=== PATIENT | female | born 1945 | race Caucasian/White ===

== ENCOUNTER 2019-12-05 07:09 | Outpatient (CLI) | payer MEDICARE, SELFPAY ==
[2019-12-05 07:49] LABS: Basophils Absolute Auto 0.03 K/mm3 (0.00-0.10); Basophils Percent Auto 0.7 % (0.0-1.0); Eosinophils Absolute Auto 0.14 K/mm3 (0.02-0.50); Eosinophils Percent Auto 3.1 % (1.0-6.0); Hematocrit 41.9 % (35.0-42.0); Hemoglobin 13.5 g/dL (11.7-13.8); Immature Granulocyte Absolute 0.07 K/mm3 (0.00-0.00); Immature Granulocyte Percent A 1.6 % (0.0-0.0); Lymphocytes Percent Auto 33.6 % (18.0-42.0); Mean Corpuscular HGB Conc 32.2 g/dL (32.0-36.0); Mean Corpuscular Hemoglobin 31.4 pg (27.0-31.0); Mean Corpuscular Volume 97.4 fL (78.0-102.0); Mean Platelet Volume 9.3 fl (9.2-11.8); Monocytes Absolute Auto 0.53 K/mm3 (0.10-0.90); Monocytes Percent Auto 11.9 % (2.0-11.0); Neutrophils Absolute Auto 2.2 K/mm3 (1.7-7.2); Neutrophils Percent Auto 49.1 % (50.0-70.0); Platelet Count Result 201 K/mm3 (150-420); Red Cell Distribution Width 13.1 % (11.6-14.4); White Blood Count 4.5 K/mm3 (4.8-10.8)
[2019-12-05 08:16] LABS: Hemoglobin A1C 6.7 % (<5.7)
[2019-12-05 08:24] LABS: Anion Gap 11.8 mmol/L (7-16); Blood Urea Nitrogen 13 mg/dL (7-18); Calcium 9.1 mg/dL (8.5-10.1); Carbon Dioxide 32 mmol/L (21-32); Chloride 101 mmol/L (98-108); Cholesterol 197 mg/dL (0-200); Estimated Glomerular Filt Rate > 60; Glucose 131 mg/dL (70-99); HDL Direct 52 mg/dL (40-60); LDL Cholesterol Calculated 109 mg/dL (<130); Osmolality Calculated 292 mOsm/kg (285-295); Potassium 4.8 mmol/L (3.5-5.1); Sodium 140 mmol/L (136-145); Triglycerides 179 mg/dL (0-150)
== END 2019-12-05 07:10 | disposition home or self-care (01) ==
PROVIDERS: PCP Family Medicine; Visit Provider Family Medicine
DX: I50.9 Heart failure, unspecified (principal); E66.3 Overweight; E11.9 Type 2 diabetes mellitus without complications
CPT/HCPCS: 36415; 80048; 80061; 83036; 85025

== ENCOUNTER 2019-12-08 10:42 | Outpatient (CLI) | payer MEDICARE, SELFPAY ==
--- NOTE | 2019-12-12 12:46 | P.PCNPFT_ITS ---
PFT Interpretation PFT Interpretation: DOS: 12/08/2019 REQUESTING: Alonso Paige DO REASON FOR TESTING: Heart failure PULMONARY FUNCTION TESTS Results are reliable and reproducible, Spirometry: FEV1 is 58% predicted, moderately decreased, 1.1 L. FVC is 72%, predicted mildly decreased. FEV1% is decreased consistent with airflow obstruction. LPY60-94% is decreased at 30% predicted and increases 60% after bronchodilator. Lung volumes: Total lung capacity is 86% predicted, normal. Residual volume 111%. RV/TLC is increased 129% consistent with air trapping. Airway resistance is normal. Diffusion: DLCO is 62% mildly decreased. Flow volume loop: Mild scooping of the expiratory limb. Irregular non- reproducible inspiratory limb attempts. IMPRESSION: Moderate obstructive ventilatory impairment, severe in the small airways with good response in the small airways, air trapping, and mild diffusion impairment. This pattern may be consistent with an obstructive process such as asthma/COPD overlap, in the proper clinical setting. Bronchodilator appears to be beneficial most in the small airways. Yari Weir MD
== END 2019-12-08 10:43 | disposition home or self-care (01) ==
LOC: CHSCARD 10:45
PROVIDERS: PCP Family Medicine; Visit Provider Family Medicine
DX: J44.9 Chronic obstructive pulmonary disease, unspecified (principal); I50.9 Heart failure, unspecified
CPT/HCPCS: 94060; 94726; 94729; C8929

== ENCOUNTER 2020-01-18 19:13 | Emergency (ER) | payer MEDICARE, SELFPAY ==
--- NOTE | ~2020-01-18 | CT_ITS ---
EXAMINATION: CT abdomen pelvis wo con EXAM DATE: 01/18/2020 20:36 INDICATION: Fecal impaction, abdominal distention, pain. TECHNIQUE: Spiral CT of the abdomen and pelvis was performed without contrast. Axial, coronal and s agittal images were reviewed. The dose-length product (DLP) for this examination was 1564.29 mGy-cm. The exposure was tailored according to patient size (auto mA exposure control), and iterative recon struction (ASIR) was used as additional dose reduction technique. There is no prior study for compar pennie. FINDINGS: Portions of the abdomen are excluded from the examination due to patient's size, out of the field of view. The liver, spleen, adrenal glands and pancreas are unremarkable. Several small gall stones, gallbladder otherwise unremarkable There is no nephrolithiasis or hydronephrosis. The uter us is unremarkable. The bladder is unremarkable. There is no retroperitoneal or pelvic lymphadenop athy. There is moderate scattered arteriosclerotic disease. The appendix is normal. There is a 3 cm duodenal diverticulum. There is moderate amount of colonic stool. Rectal vault measures 7 cm in diameter. There is moderate scattered colonic diverticulosis. T here is no adjacent inflammatory change to suggest diverticulitis. No free intraperitoneal gas. Th e lung bases are unremarkable. There are no osteoblastic or osteolytic lesions identified. IMPRESSION: 1. No acute intra-abdominal findings. 2. Moderate colonic stool. 3. Moderate colonic diverticulosis. 4. Duodenal diverticulum. Reviewed, dictated and finalized at location A.
[2020-01-18 19:15] VITALS: BP 153/82; PULSE 91; RESP 24; TEMP 37.1; O2SAT 93
--- NOTE | 2020-01-18 19:51 | ED.GENADULT ---
HPI - General Adult General Chief complaint: Unspecified Stated complaint: Constipation Time Seen by Provider: 01/18/20 20:15 Source: patient and family Mode of arrival: ambulatory Limitations: no limitations History of Present Illness HPI narrative: 74-year-old woman comes in today complaining of being impacted with stool. Patient states that she passed a hard stool earlier today and had some blood in her stool and blood when she wiped. Patient states that she has been constipated for the last couple of days. Her doctor recently started her on some antibiotics and antifungals for a rash that she has on her legs. She denies fever, vomiting, nausea, but has some mild crampy abdominal pain. She has had no dysuria, hematuria. Onset (ago): day(s) (2) Radiation: non-radiation Severity: moderate Quality: dull Pain Consistency: intermittent Relieving factors: none Exacerbating factors: other (BM) Treatments prior to arrival: other ( stool softener pills) Related Data Home Medications Medication Instructions Recorded Confirmed alprazolam 0.25 mg PO BID PRN 01/18/20 01/18/20 aspirin 325 mg PO DAILY 01/18/20 01/18/20 diltiazem HCl 240 mg PO DAILY 01/18/20 01/18/20 docusate sodium 50 mg PO BID 01/18/20 01/18/20 furosemide 20 mg PO DAILY 01/18/20 01/18/20 hydrochlorothiazide 12.5 mg PO DAILY 01/18/20 01/18/20 ipratropium-albuterol [Combivent 1 puff INHALATION Q4H 01/18/20 01/18/20 Respimat] quinapril 20 mg PO BID 01/18/20 01/18/20 Allergies Allergy/AdvReac Type Severity Reaction Status Date / Time cephalexin Allergy Intermediate Unknown Verified 01/16/20 09:03 codeine Allergy Intermediate Unknown Verified 01/16/20 09:03 ibuprofen Allergy Intermediate Unknown Verified 01/16/20 09:03 Penicillins Allergy Intermediate Unknown Verified 01/16/20 09:03 IVP dye Allergy Intermediate Unknown Uncoded 06/23/19 10:56 Sulfonamides Allergy Intermediate Unknown Uncoded 06/23/19 10:56 Review of Systems Constitutional: Constitutional: Denies chills and Denies fever(s) Eyes: Eyes: Denies change in vision and Denies photophobia ENT: Denies dysphagia, Denies nasal congestion and Denies sore throat Cardiovascular: Cardiovascular: Denies chest pain and Denies radiating jaw, neck or arm pain Respiratory: Respiratory: Denies cough, Denies dyspnea and Denies wheezing Gastrointestinal: Gastrointestinal: Reports as per HPI, Reports abdominal pain, Reports bloating, Reports constipation, Denies diarrhea, Denies nausea and Denies vomiting Musculoskeletal: Musculoskeletal: Denies arthralgias and Denies joint swelling Integumentary/Breasts: Skin/Breast: Reports as per HPI, Denies pruritus, Reports erythema and Reports rash Neurologic: Denies vertigo, Denies dizziness and Denies syncope Hematologic/Lymphatic: Hematologic/Lymphatic: Denies easy bleeding and Denies easy bruising Allergic/Immunologic: Allergic/Immunologic: Denies lip swelling and Denies wheezing PMFSH Past Medical History Medical History CHF (congestive heart failure) Chronic hip pain Cigarette nicotine dependence COPD (chronic obstructive pulmonary disease) SEKOU (generalized anxiety disorder) History of right breast cancer Hyperlipidemia Hypertension Nicotine dependence Overweight Surgical History Surgical History History of appendectomy 1978 History of carpal tunnel surgery Bilateral History of left knee surgery History of mastectomy, total Right Breast Removed 1995 History of partial hysterectomy 1978 Hx of tonsillectomy 1952 Social History Social History Smoking status: Former smoker Tobacco type: cigarettes Additional living arrangements comments: . Lives with her . 1 adult child. Additional occupation/education comments: Prior Occupation: Book keeping. Exam
[2020-01-18 20:47] LABS: Basophils Absolute Auto 0.03 K/mm3 (0.00-0.10); Basophils Percent Auto 0.4 % (0.0-1.0); Eosinophils Absolute Auto 0.07 K/mm3 (0.02-0.50); Eosinophils Percent Auto 0.9 % (1.0-6.0); Hematocrit 43.2 % (35.0-42.0); Hemoglobin 13.4 g/dL (11.7-13.8); Immature Granulocyte Absolute 0.04 K/mm3 (0.00-0.00); Immature Granulocyte Percent A 0.5 % (0.0-0.0); Lymphocytes Absolute Auto 1.15 K/mm3 (1.10-4.50); Lymphocytes Percent Auto 15.5 % (18.0-42.0); Mean Corpuscular Hemoglobin 30.2 pg (27.0-31.0); Mean Corpuscular Volume 97.5 fL (78.0-102.0); Mean Platelet Volume 9.6 fl (9.2-11.8); Monocytes Absolute Auto 0.65 K/mm3 (0.10-0.90); Monocytes Percent Auto 8.7 % (2.0-11.0); Neutrophils Absolute Auto 5.5 K/mm3 (1.7-7.2); Platelet Count Result 213 K/mm3 (150-420); Red Blood Count 4.43 M/mm3 (4.20-5.40); Red Cell Distribution Width 12.7 % (11.6-14.4); White Blood Count 7.4 K/mm3 (4.8-10.8)
[2020-01-18 21:09] LABS: Alanine Aminotransferase 37 U/L (14-59); Albumin Level 3.7 g/dL (3.4-5.0); Alkaline Phosphatase 50 U/L (46-116); Anion Gap 8 mmol/L (8-16); Aspartate Amino Transferase 21 U/L (15-37); Bilirubin,Total 0.3 mg/dL (0.00-1.00); Blood Urea Nitrogen 25 mg/dL (7-18); Calcium 9.3 mg/dL (8.5-10.1); Carbon Dioxide 31 mmol/L (21-32); Chloride 103 mmol/L (98-108); Estimated CRCL calculation 50 ml/min; Estimated Glomerular Filt Rate 48; Glucose 103 mg/dL (70-99); Osmolality Calculated 298 mOsm/kg (285-295); Potassium 4.1 mmol/L (3.5-5.1); Sodium 142 mmol/L (136-145); Total Protein 7.6 g/dL (6.4-8.2)
[2020-01-18 21:25] LABS: Add Urine Microscopic? NO; Appearance Urine Clear (Clear); Bilirubin Urine Negative (Negative); Blood Urine Negative (Negative); Color Urine Yellow (Yellow); Glucose Urine UA Negative (Negative); Ketones Urine Negative (Negative); Leukocyte Esterase Ur Negative (Negative); Nitrate Urine Negative (Negative); Protein Urine Negative (Negative); Specific Grav Ur 1.025 (1.010-1.020); Urobilinogen Urine 0.2 mg/dL (0.2-1.0)
[2020-01-18 21:41] VITALS: BP 119/64; PULSE 78; RESP 20; O2SAT 94
[2020-01-18 21:51] LABS: Occult Blood Negative (Negative)
== END 2020-01-18 22:05 | disposition home or self-care (01) ==
PROVIDERS: Emergency Provider Emergency Medicine; PCP Family Medicine
DX: K59.00 Constipation, unspecified (principal); I50.9 Heart failure, unspecified; J44.9 Chronic obstructive pulmonary disease, unspecified; Z85.3 Personal history of malignant neoplasm of breast; E78.5 Hyperlipidemia, unspecified; I10 Essential (primary) hypertension; Z87.891 Personal history of nicotine dependence; Z79.899 Other long term (current) drug therapy
CPT/HCPCS: 36415; 74176; 80053; 81003; 82272; 85025; 87040; 87086; 87088; 99283; 99284

== ENCOUNTER 2021-03-18 08:47 | Outpatient (CLI) | payer MEDICARE, SELFPAY ==
[2021-03-18 09:07] LABS: Basophils Absolute Auto 0.03 K/mm3 (0.00-0.10); Basophils Percent Auto 0.6 % (0.0-1.0); Eosinophils Absolute Auto 0.22 K/mm3 (0.02-0.50); Eosinophils Percent Auto 4.4 % (1.0-6.0); Hematocrit 40.7 % (35.0-42.0); Hemoglobin 13.1 g/dL (11.7-13.8); Immature Granulocyte Absolute 0.04 K/mm3 (0.00-0.00); Immature Granulocyte Percent A 0.8 % (0.0-0.0); Lymphocytes Absolute Auto 1.63 K/mm3 (1.10-4.50); Lymphocytes Percent Auto 32.8 % (18.0-42.0); Mean Corpuscular HGB Conc 32.2 g/dL (32.0-36.0); Mean Corpuscular Hemoglobin 31.1 pg (27.0-31.0); Mean Corpuscular Volume 96.7 fL (78.0-102.0); Monocytes Absolute Auto 0.65 K/mm3 (0.10-0.90); Monocytes Percent Auto 13.1 % (2.0-11.0); Neutrophils Absolute Auto 2.4 K/mm3 (1.7-7.2); Neutrophils Percent Auto 48.3 % (50.0-70.0); Platelet Count Result 218 K/mm3 (150-420); Red Blood Count 4.21 M/mm3 (4.20-5.40); Red Cell Distribution Width 12.9 % (11.6-14.4)
[2021-03-18 09:21] LABS: Creatinine Urine 54.76 mg/dL (40-278); MALB Creatinine Ratio 23.7 mg/g (0-30); Microalbumin Urine Random < 13.0 mg/L
[2021-03-18 09:25] LABS: Hemoglobin A1C 6.3 % (<5.7)
[2021-03-18 09:44] LABS: Alanine Aminotransferase 41 U/L (14-59); Albumin Level 3.6 g/dL (3.4-5.0); Alkaline Phosphatase 52 U/L (46-116); Anion Gap 8 mmol/L (8-16); Aspartate Amino Transferase 24 U/L (15-37); Bilirubin,Total 0.3 mg/dL (0.00-1.00); Blood Urea Nitrogen 13 mg/dL (7-18); Calcium 9.1 mg/dL (8.5-10.1); Carbon Dioxide 29 mmol/L (21-32); Chloride 106 mmol/L (98-108); Cholesterol 177 mg/dL (0-200); Estimated Glomerular Filt Rate > 60; Glucose 119 mg/dL (70-99); HDL Direct 46 mg/dL (40-60); LDL Cholesterol Calculated 104 mg/dL (<130); Osmolality Calculated 297 mOsm/kg (285-295); Potassium 5.1 mmol/L (3.5-5.1); Sodium 143 mmol/L (136-145); Total Protein 6.9 g/dL (6.4-8.2); Triglycerides 133 mg/dL (0-150)
== END 2021-03-18 08:48 | disposition home or self-care (01) ==
LOC: CHSLAB 08:50
PROVIDERS: PCP Family Medicine; Visit Provider Family Medicine
DX: E78.5 Hyperlipidemia, unspecified (principal); I10 Essential (primary) hypertension; E11.69 Type 2 diabetes mellitus with other specified complication; E66.9 Obesity, unspecified
CPT/HCPCS: 36415; 80053; 80061; 82043; 83036; 84443; 85025

== ENCOUNTER 2021-11-05 12:56 | Emergency (ER) | payer MEDICARE, SELFPAY ==
--- NOTE | ~2021-11-05 | CT_ITS ---
EXAMINATION: CT abdomen pelvis wo con DATE: 11/05/2021 15:02 INDICATION: Constipation. Low abdominal pain. TECHNIQUE: Computed tomography (CT) of the abdomen and pelvis was performed without intravenous contr ast. Automated exposure control and iterative reconstruction technique were employed. The dose-length product was 1509.98 mGy-cm. COMPARISON: CT abdomen and pelvis 01/18/2020 FINDINGS: The visualized portions of the lung bases demonstrate calcified pulmonary nodules and calci fied hilar lymph nodes, consistent with old granulomatous disease. There is mild atelectasis bilatera lly. No pleural effusion. The heart size is normal. There are coronary artery calcifications. No kota cardial effusion. The liver is normal. Calcifications in the spleen are consistent with old granuloma tous disease. There are gallstones in the gallbladder, which is distended. The pancreas, adrenal glan ds, and kidneys are normal. There is no urolithiasis. There is diverticulosis of the colon without ev idence of diverticulitis. The appendix is not visualized. There is a diverticulum of the second porti on of the duodenum. There is a moderate volume of stool in the colon. There is a stable mildly enlarg ed aortocaval node, likely reactive. The bladder is distended. There is no free intraperitoneal fluid . There is severe thoracic spondylosis and moderate lumbar spondylosis. IMPRESSION: 1. Cholelithiasis. Gallbladder distention may be secondary to fasting. Correlate with physical exam t o exclude acute cholecystitis. Reviewed, dictated and finalized at location A. IMPRESSION: 1. Cholelithiasis. Gallbladder distention may be secondary to fasting. Correlat e with physical exam to exclude acute cholecystitis.
[2021-11-05 13:10] VITALS: BP 117/71; PULSE 82; RESP 16; TEMP 36.3; O2SAT 99
[2021-11-05 14:41] VITALS: BP 144/71; PULSE 86; RESP 20; O2SAT 95
--- NOTE | 2021-11-05 14:41 | ED.ABDPAIN ---
HPI - Abdominal Pain General Chief Complaint: Abdominal Pain Stated Complaint: Constipation, Impaction Time Seen by Provider: 11/05/21 14:40 Source: patient and family Limitations: no limitations History of Present Illness HPI narrative: Patient 76 years old white female, presents to the ED complaining of not her last bowel movement 3 days ago, been using milk of magnesium, MiraLAX and Colace. Patient believes that she is constipated. History of IBS. She denies any fever, chills, nausea, vomiting. Related Data Home Medications Medication Instructions Recorded Confirmed aspirin 325 mg tablet 325 mg PO DAILY 01/18/20 03/14/21 hydrochlorothiazide 12.5 mg capsule 12.5 mg PO DAILY 01/18/20 03/14/21 docusate sodium 50 mg capsule 50 mg PO DAILY 02/02/20 03/14/21 (Stool Softener) Allergies Allergy/AdvReac Type Severity Reaction Status Date / Time cephalexin Allergy Intermediate Unknown Verified 11/05/21 14:47 codeine Allergy Intermediate Unknown Verified 11/05/21 14:47 ibuprofen Allergy Intermediate Unknown Verified 11/05/21 14:47 Penicillins Allergy Intermediate Unknown Verified 11/05/21 14:47 IVP dye Allergy Intermediate Unknown Uncoded 11/05/21 14:47 Sulfonamides Allergy Intermediate Unknown Uncoded 11/05/21 14:47 Review of Systems Review of Systems: All systems reviewed & are unremarkable except as noted in HPI and below PMFSH Past Medical History Medical History Candidal intertrigo CHF (congestive heart failure) Chronic hip pain Cigarette nicotine dependence COPD (chronic obstructive pulmonary disease) Diabetes mellitus type 2 in obese [place] SEKOU (generalized anxiety disorder) Herpes zoster History of right breast cancer Hypertension Nicotine dependence Overweight Surgical History Surgical History History of appendectomy 1978 History of carpal tunnel surgery Bilateral History of left knee surgery History of mastectomy, total Right Breast Removed 1995 History of partial hysterectomy 1978 Hx of tonsillectomy 1952 Family History Family History Father CHF (congestive heart failure) Malignant neoplasm of prostate Rheumatoid arthritis Mother CHF (congestive heart failure) Carcinoma of colon Social History Social History Smoking status: Former smoker Tobacco type: cigarettes Additional living arrangements comments: . Lives with her . Adult child lives at [facility]. Additional occupation/education comments: Prior Occupation: Book keeping. Exam Narrative: General appearance: Well-developed, well-nourished Skin: Normal color Head: Normocephalic, nontraumatic Eyes: Clear conjunctiva ENT: Oropharynx normal, ears normal, nose normal Neck: Supple, nontender Chest and respiratory: Airway patent, no respiratory distress, no accessory muscle use Heart: Regular rate/rhythm Abdomen: Soft, mild diffuse tenderness at the lower abdomen, no guarding or rebound, large abdomen. No organomegaly, quiet bowel sounds, rectal exam showed fecal impaction, hemorrhoids, slightly oozing blood Vascular: Normal peripheral pulses, normal capillary refill. Musculoskeletal: Normal range of motion, nontender back Neurologic: Alert and oriented ?3, TRAIN [employer] is normal as tested, no gross motor deficit Course Vital Signs Vital signs: Vital Signs Temperature 36.3 C L 11/05/21 13:10 Pulse Rate 82 11/05/21 13:10 Respiratory Rate 16 11/05/21 13:10 Blood Pressure 117/71 11/05/21 13:10 Pulse Oximetry
[2021-11-05 14:58] LABS: Basophils Percent Auto 0.2 % (0.2-1.2); Eosinophils Absolute Auto 0.1 K/mm3 (0-0.3); Eosinophils Percent Auto 0.7 % (0-4.4); Hematocrit 43.1 % (37.0-47.0); Hemoglobin 13.4 g/dL (12.0-15.0); Immature Granulocyte Absolute 0.03 K/mm3 (0.00-0.031); Immature Granulocyte Percent A 0.3 % (0-0.5); Lymphocytes Absolute Auto 0.94 K/mm3 (0.9-3.2); Lymphocytes Percent Auto 10.5 % (18.3-44.2); Mean Corpuscular HGB Conc 31.1 g/dl (32-36); Mean Corpuscular Volume 96.6 fl (80-100); Mean Platelet Volume 9.2 fl (7.4-10.4); Monocytes Absolute Auto 0.7 K/mm3 (0.1-0.6); Monocytes Percent Auto 7.3 % (2.6-8.5); Neutrophils Absolute Auto 7.2 K/mm3 (1.3-6.7); Platelet Count Result 233 k/mm3 (150-375); Red Blood Count 4.46 M/mm3 (4.2-5.4); White Blood Count 8.9 K/mm3 (4.5-10.0)
[2021-11-05 15:12] LABS: Alanine Aminotransferase 30 U/L (6-35); Albumin Level 4.6 g/dL (3.5-5.1); Alkaline Phosphatase 55 U/L (38-126); Anion Gap 8 mmol/L (8-16); Aspartate Amino Transferase 34 U/L (14-36); Bilirubin,Total 0.3 mg/dL (0.2-1.3); Blood Urea Nitrogen 15 mg/dL (7-17); Calcium 9.4 mg/dL (8.4-10.2); Carbon Dioxide 29 mmol/L (22-30); Chloride 100 mmol/L (98-107); Estimated CRCL calculation 78 ml/min; Estimated Glomerular Filt Rate > 60; Glucose 141 mg/dL (65-110); Lipase 178 U/L (23-300); Potassium 4.6 mmol/L (3.4-5.0); Sodium 137 mmol/L (137-145)
[2021-11-05 15:26] LABS: Appearance Urine Clear (Clear); Bilirubin Urine Negative (Negative); Blood Urine Trace-lysed (Negative); Color Urine Yellow (Yellow); Glucose Urine UA Negative (Negative); Ketones Urine Negative (Negative); Leukocyte Esterase Ur Trace LEU/UL (Negative); Nitrate Urine Negative (Negative); Protein Urine Negative (Negative); Specific Grav Ur 1.015 (1.001-1.035); Urobilinogen Urine 0.2 mg/dL (<2.0); pH Urine 5.5 (5.0-9.0)
[2021-11-05 15:50] LABS: Bacteria Urine Trace /hpf; Mucus Urine Rare /lpf; RBC Urine 0-2 /hpf (0-2); Squamous Epithelial Cell Urine Many /hpf (Few); WBC Urine 0-3 /hpf
[2021-11-05] MEDS: SODIUM CHLORIDE 0.9% IV 1,000 ML 999 ML IV CONT (15:53)
[2021-11-05 15:54] LABS: Add Urine Microscopic? YES
[2021-11-05 16:04] VITALS: BP 125/81; PULSE 75; RESP 20; O2SAT 96
--- NOTE | 2021-11-05 16:37 | PC.NURSE ---
Pt ambulatory to the bathroom
--- NOTE | 2021-11-05 16:51 | PC.NURSE ---
Pt had extra large BM
[2021-11-05 17:54] VITALS: BP 146/63; PULSE 80; RESP 18; O2SAT 99
== END 2021-11-05 17:46 | disposition home or self-care (01) ==
PROVIDERS: Emergency Provider Emergency Medicine; PCP Family Medicine
DX: K64.9 Unspecified hemorrhoids (principal); K80.20 Calculus of gallbladder without cholecystitis without obstruction; K58.9 Irritable bowel syndrome, unspecified; I11.0 Hypertensive heart disease with heart failure; I50.9 Heart failure, unspecified; J44.9 Chronic obstructive pulmonary disease, unspecified; E11.9 Type 2 diabetes mellitus without complications; Z87.891 Personal history of nicotine dependence
CPT/HCPCS: 36415; 74176; 80053; 81001; 83690; 85025; 96360; 96361; 99284; J7030

== ENCOUNTER 2021-12-10 09:18 | Outpatient (CLI) | payer MEDICARE, SELFPAY ==
--- NOTE | ~2021-12-10 | XR_ITS ---
XR chest 2V 12/10/2021 09:51 Indication: Pruritus Procedure: PA and lateral views of the chest Comparison: Comparison to multiple prior studies sequentially, with oldest reviewed study dated 11/30. Findings: Borderline heart size. No focal air space disease, pulmonary edema, pleural effusion or milton pected pneumothorax. There is right basilar atelectasis. There is atherosclerosis of the aorta. Moder ate thoracic spondylosis. No acute osseous abnormality. Impression: 1: Right basilar atelectasis. Reviewed, dictated and finalized at location A. Impression: 1: Right basilar atelectasis.
[2021-12-10 09:39] LABS: Basophils Absolute Auto 0.02 K/mm3 (0.00-0.10); Basophils Percent Auto 0.4 % (0.0-1.0); Eosinophils Absolute Auto 0.24 K/mm3 (0.02-0.50); Eosinophils Percent Auto 5.3 % (1.0-6.0); Hematocrit 40.2 % (35.0-42.0); Hemoglobin 13.1 g/dL (11.7-13.8); Immature Granulocyte Absolute 0.04 K/mm3 (0.00-0.00); Immature Granulocyte Percent A 0.9 % (0.0-0.0); Lymphocytes Absolute Auto 1.21 K/mm3 (1.10-4.50); Lymphocytes Percent Auto 26.5 % (18.0-42.0); Mean Corpuscular HGB Conc 32.6 g/dL (32.0-36.0); Mean Corpuscular Volume 95.3 fL (78.0-102.0); Monocytes Absolute Auto 0.52 K/mm3 (0.10-0.90); Monocytes Percent Auto 11.4 % (2.0-11.0); Neutrophils Absolute Auto 2.5 K/mm3 (1.7-7.2); Neutrophils Percent Auto 55.5 % (50.0-70.0); Platelet Count Result 206 K/mm3 (150-420); Red Blood Count 4.22 M/mm3 (4.20-5.40); Red Cell Distribution Width 12.6 % (11.6-14.4); White Blood Count 4.6 K/mm3 (4.8-10.8)
[2021-12-10 10:31] LABS: Alanine Aminotransferase 38 U/L (14-59); Albumin Level 3.8 g/dL (3.4-5.0); Alkaline Phosphatase 51 U/L (46-116); Anion Gap 9 mmol/L (8-16); Aspartate Amino Transferase 20 U/L (15-37); Bilirubin,Total 0.3 mg/dL (0.00-1.00); Blood Urea Nitrogen 13 mg/dL (7-18); CRP < 0.2 mg/dL (0.0-0.9); Calcium 9.1 mg/dL (8.5-10.1); Carbon Dioxide 29 mmol/L (21-32); Chloride 104 mmol/L (98-108); Estimated Glomerular Filt Rate > 60; Ferritin 113 ng/mL (8-252); Glucose 110 mg/dL (70-99); Iron 66 ug/dL (50-170); Osmolality Calculated 295 mOsm/kg (285-295); Percent Iron Saturation 23 % (12-57); Potassium 4.4 mmol/L (3.5-5.1); Sodium 142 mmol/L (136-145); Thyroid Stimulating Hormone Reflex 1.56 u/IU/mL (0.36-3.74)
[2021-12-10 10:42] LABS: Erythrocyte Sedimentation Rate 24 mm/hr (0-20)
== END 2021-12-10 09:19 | disposition home or self-care (01) ==
LOC: CHSLAB 09:25
PROVIDERS: PCP Family Medicine; Visit Provider Specialist
DX: L29.9 Pruritus, unspecified (principal)
CPT/HCPCS: 36415; 71046; 80053; 82728; 83540; 83550; 84443; 85025; 85652; 86140

== ENCOUNTER 2023-09-24 10:11 | Outpatient (CLI) | payer MEDICARE, SELFPAY ==
--- NOTE | ~2023-09-24 | CT_ITS ---
Non-contrast CT scan of the Abdomen and Pelvis Clinical indication: Abdominal pain Technique: 2.5 mm axial scans were obtained through the abdomen and pelvis without intravenous or or al contrast. Dose reduction technique was used on this scan by utilizing automated exposure control a nd iterative reconstruction technique. The dose-length product (DLP) was 976.07 mGy-cm. Findings: Images through the lung bases reveal no abnormalities. There is no evidence of renal or ureteral calculi. The kidneys and the ureters are nondilated. The liver, spleen, pancreas, and adrenals appear normal. Small calcified gallstone present. There are atherosclerotic calcifications of the aorta. There is no evidence of bowel obstruction. Images through the pelvis were performed. There is no evidence of ascites or lymphadenopathy. Urinary bladder unremarkable. No adnexal mass seen. No ascites. There is degenerative spondylosis of lumbar spine. There is moderate to advanced degenerative change of the left hip joint. There is mild degenerative change of the right hip joint. Impression: No acute abnormality seen. Cholelithiasis. Reviewed, dictated and finalized at location . Impression: No acute abnormality seen. Cholelithiasis.
== END 2023-09-24 10:12 ==
LOC: MICIMG 10:12
PROVIDERS: PCP Family Medicine; Visit Provider Family Medicine
DX: R10.9 Unspecified abdominal pain (principal); K80.20 Calculus of gallbladder without cholecystitis without obstruction
CPT/HCPCS: 74176